=== PATIENT | male | born 1985 | race American Indian/Alaskan Native ===

== ENCOUNTER 2022-03-11 10:36 | Emergency (ER) | payer OTHER ==
[2022-03-11 11:57] VITALS: BP 121/89
--- NOTE | 2022-03-11 14:03 | Emergency Department Report ---
ED Eye Problem HPI - General Chief complaint: Eye Problems Stated complaint: EYE PAIN REDNESS Time Seen by Provider: 03/11/22 11:48 Source: patient Mode of arrival: Ambulatory Limitations: No Limitations - History of Present Illness Initial comments: 36-year-old male with no significant history presents with eye patient reports over the past 5 days, he has noticed that he wakes up with redness. Drainage in his eye, eye matting up, with redness. He has tried multiple OTC drops without improvement. He denies foreign body in the eye, he denies blurry vision, no congestion, no itching. Denies use of contacts or glasses. Denies headaches, no vision changes. MD chief complaint: eye redness -: Gradual, days(s) Onset Description: gradual Location: left eye Place: home If Injury: none Eye Symptoms: redness, discharge, photophobia Severity: mild Severity scale (0 -10): 2 If Pain, Quality: aching Consistency: constant Associated Symptoms: none. denies: headache, neck pain, nausea/vomiting, cough, rhinorrhea, fever, shortness of breath Treatments Prior to Arrival: OTC eye drops - Related Data Patient Tetanus UTD: No Previous Rx's Medication Instructions Recorded Last Taken Type Erythromycin [Erythromycin Ophth 1 applic OP Q6H #1 tube 03/11/22 Unknown Rx Oint] Allergies Allergy/AdvReac Type Severity Reaction Status Date / Time No Known Allergies Allergy Verified 03/11/22 11:57 ED Review of Systems ROS: Stated complaint: EYE PAIN REDNESS Other details as noted in HPI Constitutional: denies: see HPI, chills, fever Eyes: eye discharge. denies: vision change ENT: denies: ear pain, throat pain Respiratory: denies: cough, orthopnea, shortness of breath Cardiovascular: denies: chest pain, palpitations Endocrine: denies: intolerance to cold, intolerance to heat Gastrointestinal: denies: abdominal pain, nausea, vomiting Genitourinary: denies: urgency, dysuria Musculoskeletal: denies: back pain, joint swelling, arthralgia Skin: denies: rash, lesions Psychiatric: denies: anxiety, depression, auditory hallucinations, homicidal thoughts ED Past Medical Hx - Social History Smoking Status: Never Smoker Substance Use Type: None - Medications Home Medications: Home Medications Medication Instructions Recorded Confirmed Last Taken Type Erythromycin [Erythromycin Ophth 1 applic OP Q6H #1 tube 03/11/22 Unknown Rx Oint] ED Physical Exam - General Limitations: No Limitations, Language Barrier General appearance: alert, in no apparent distress - Head Head exam: Present: atraumatic - Eye Eye exam: Present: normal appearance, PERRL, other (There is erythema of the conjunctive on the left, no ecchymosis, no edema, no periorbital swelling. No tenderness. Visual acuity without glasses 20/16 bilaterally, 20/20 in the right eye, 20/20 in the left eye.). Absent: conjunctival injection Pupils: Present: normal accommodation. Absent: unequal - ENT ENT exam: Present: normal exam, normal orophraynx - Neck Neck exam: Present: normal inspection. Absent: tenderness - Respiratory Respiratory exam: Present: normal lung sounds bilaterally. Absent: respiratory distress - Cardiovascular Cardiovascular Exam: Present: regular rate, normal rhythm - GI/Abdominal GI/Abdominal exam: Present: soft. Absent: distended, tenderness - Extremities Exam Extremities exam: Present: normal inspection, full ROM - Back Exam Back exam: Present: normal inspection, full ROM - Neurological Exam Neurological exam: Present: alert, oriented X3 - Psychiatric Psychiatric exam: Present: normal affect, normal mood - Skin Skin exam: Present: warm, dry, intact, normal color ED Course Vital Signs 03/11/22 11:48 Temperature 97.6 F Pulse Rate 83 Respiratory 18 Rate Blood Pressure 121/89 [Left] O2 Sat by Pulse 98 Oximetry ED Medical Decision Making - Medical Decision Making 36-year-old male with no significant history presents with eye patient reports over the past 5 days, he has noticed that he wakes up with redness. Drainage in his eye, eye matting up, with redness. He has tried multiple OTC drops without improvement. He denies foreign body in the eye, he denies blurry vision, no congestion, no itching. Denies use of contacts or glasses. Denies headaches, no vision changes. Visual acuity 20*16 bilaterally, 20/20 in each eye without use of corrective lenses Symptoms not been there for past 5 days, patient would benefit from antibiotic ointment, warm compresses, ophthalmology referral. I discussed all of this with patient including plan for follow-up outpatient with understanding. Patient remained stable nontoxic-appearing, afebrile, ambulating steadily without assistance. Gone over ED findings with patient as well as plan for follow-up. Also discussed return precautions with patient, all questions and c oncerns addressed. Patient is stable to be discharged follow-up outpatient. Audio voice dictation device used, hence the chart might contain some dictation errors, mispronunciations, wrong spelling and wrong verbiage. Critical care attestation.: If time is entered above; I have spent that time in minutes in the direct care of this critically ill patient, excluding procedure time. ED Disposition Clinical Impression: Conjunctivitis Disposition: 01 HOME / SELF CARE / HOMELESS Is pt being admited?: No Does the pt Need Aspirin: No Condition: Stable Prescriptions: Erythromycin [Erythromycin Ophth Oint] 1 applic OP Q6H #1 tube Referrals: PRIMARY CAREMD [Primary Care Provider] - 3-5 Days CLARICE LANG MD [Staff Physician] - 3-5 Days Forms: Work/School Release Form(ED)
== END 2022-03-11 14:06 | disposition home or self-care (01) ==
LOC: ED 10:36
DX: H10.9 Unspecified conjunctivitis (principal); Z79.899 Other long term (current) drug therapy
CPT/HCPCS: 99282